=== PATIENT | male | born 1965 | race Caucasian/White ===

== ENCOUNTER → 2024-07-28 14:25 | Outpatient (REF) | payer BC, SELFPAY | LOC: RAD 14:25 | PROVIDERS: ATTENDING PHYSICIAN Internal Medicine | DX: R53.83 Other fatigue (principal); R53.81 Other malaise; R63.4 Abnormal weight loss; Z72.0 Tobacco use; G44.219 Episodic tension-type headache, not intractable | CPT/HCPCS: 70450; 71271; 74177; Q9967 ==